=== PATIENT | male | born 1985 | race Caucasian/White ===

== ENCOUNTER 2020-07-30 16:19 | Emergency (ER) | payer OTHER ==
[2020-08-25] MEDS ORDERED: SUBOXONE PO (08:42)
== END 2020-07-30 17:19 | disposition home or self-care (01) ==
LOC: ER1 16:19
DX: K40.90 Unilateral inguinal hernia, without obstruction or gangrene, not specified as recurrent (principal)
CPT/HCPCS: 99283

== ENCOUNTER → 2020-08-25 | Day surgery (SDC) | payer OTHER ==
[~2020-08-25] MED LIST: SUBOXONE PO
[2020-08-25 08:26] LABS: HEMOGLOBIN 14.2 gm/dl (14.0-17.5); RED BLOOD COUNT 4.86 M/UL (4.20-5.50); WHITE BLOOD COUNT 11.9 K/UL (4.5-11.0)
== END | disposition home or self-care (01) ==
LOC: OR 07:53
PROVIDERS: Surgery
DX: K40.90 Unilateral inguinal hernia, without obstruction or gangrene, not specified as recurrent (principal); F19.90 Other psychoactive substance use, unspecified, uncomplicated
CPT/HCPCS: 36415; 85025; C1781; J0690; J1885; J2001; J2250; J2405; J2550; J2704; J3010; J7030; J7120